=== PATIENT | male | born 1955 | race Caucasian/White ===

== ENCOUNTER 2023-07-13 13:55 | Outpatient (AMB) | payer MEDICARE, MEDICAID, SELFPAY ==
[2023-07-13 13:57] VITALS: BP 118/40; PULSE 74; O2SAT 93; BMI 34.0
--- NOTE | 2023-07-13 13:57 | HO.NEPHOV_ITS ---
HPI HPI Comments History of Present Illness Details I had the privilege of seeing Mr. Maldonado in follow-up of his hypertension. He has been abstaining from using any drugs. His blood sugar control is better. His blood pressure has been at goal. He denies chest pain, shortness of breath, paroxysmal nocturnal dyspnea, orthopnea, pedal edema, urinary symptoms or orthostasis. He is compliant with his medications. There were no new active complaints at the time of this office visit. [facility] Medical History (Updated 07/13/23 @ 14:22 by Freeman Gillespie MD) Hypertension Family History Mother Glaucoma Father Heart disease Heart attack Social History (Updated 07/13/23 @ 13:59 by Natasha Leal) Alcohol intake: former Patient Tobacco Use Status: Former Tobacco user Vital Signs 07/13/23 13:57 Height 5 ft 9 in Weight 230 lb 6 oz BMI 34.0 BP 118/40 L Blood Pressure Location Lt brachial Position Sitting Pulse 74 Pulse Source Pulse Oximeter Pulse Oximetry (%) 93 Oxygen Delivery Method Room Air Physical Exam Vital Signs: Last Vital Signs Pulse 74 07/13/23 13:57 BP 118/40 L 07/13/23 13:57 Pulse Ox 93 07/13/23 13:57 Oxygen Delivery Method Room Air 07/13/23 13:57 BMI result Body Mass Index 34.0 Const General: comfortable and no acute distress Orientation/consciousness: patient oriented x3 HEENT Head: Yes normocephalic Mouth: Normal oral and palatal mucosa present Eyes EOM: EOMs intact bilaterally Neck Neck: Yes supple Resp Auscultation: clear to auscultation bilaterally Cardio Jugular venous distension: no JVD Rate: regular rate GI Palpation (GI): Soft to palpation Auscultation: normal bowel sounds General: Yes no CVA tenderness Back/Spine/Pelvis Back: no CVA tenderness Skin General skin exam: no rashes or lesions noted Neuro General: patient oriented x3 and moves all extremities Extrem General: Yes no pedal edema Assessment & Plan Assessment & Plan (1) Hypertension: Code(s): I10 - Essential (primary) hypertension Qualifiers: Hypertension type: primary hypertension Qualified Code(s): I10 - Essential (primary) hypertension Plan Mr Maldonado has longstanding hypertension. He has not currently using any drugs. He has not been taking any nonsteroidal anti-inflammatory meds. He tries to maintain a low-sodium diet. He is on MARIO inhibitor. His blood pressure is at goal. He is tolerating all his current medications without any side effects. He does not have any significant proteinuria. His diabetes is fairly controlled. I did not make any medication changes today. Follow-up blood work ordered. Answered all questions. Follow-up appointment given. Orders: Orders Creatinine 07/13/23 I10 - Essential (primary) hypertension Electrolytes 07/13/23 I10 - Essential (primary) hypertension Blood Urea Nitrogen 07/13/23 I10 - Essential (primary) hypertension Protein Creatinine Ratio, Ur 07/13/23 I10 - Essential (primary) hypertension Coding Level of Care Code Est Pt Level 3 (16308) Diagnoses Primary hypertension I10 Hypertension type: primary hypertension Results Reviewed Nephrology Results: No Data to Display
== END 2023-07-13 14:29 | disposition home or self-care (01) ==
PROVIDERS: PCP Hospitalist; Visit Provider Internal Medicine Nephrology
DX: I10 Essential (primary) hypertension (principal)
CPT/HCPCS: 99213

== ENCOUNTER → 2023-07-13 13:55 | Outpatient (BNVA) | payer MEDICARE, MEDICAID, SELFPAY | PROVIDERS: PCP Hospitalist; Visit Provider Internal Medicine Nephrology | DX: I10 Essential (primary) hypertension (principal) | CPT/HCPCS: 99212 ==

== ENCOUNTER 2023-10-11 15:55 | Outpatient (REF) | payer MEDICARE, MEDICAID, SELFPAY ==
[2023-10-11 18:28] LABS: Creatinine Urine 58.44 mg/dL; Total Protein Urine Random < 7 mg/dL (<12)
[2023-10-11 18:29] LABS: Anion Gap 10 (12-20); Blood Urea Nitrogen 33 mg/dL (9-16); Carbon Dioxide 31 mmol/L (22-29); Chloride 102 mmol/L (96-108); Estimated Glomerular Filt Rate > 60; Potassium 4.4 mmol/L (3.3-5.1); Sodium 139 mmol/L (135-145)
== END 2023-10-11 15:56 | disposition home or self-care (01) ==
LOC: HO.HKASLDS 15:55
PROVIDERS: Visit Provider Internal Medicine Nephrology
DX: I10 Essential (primary) hypertension (principal)
CPT/HCPCS: 36415; 80051; 82565; 82570; 84156; 84520

== ENCOUNTER 2023-10-12 13:48 | Outpatient (AMB) | payer MEDICARE, MEDICAID, SELFPAY ==
[2023-10-12 13:56] VITALS: BP 124/60; PULSE 70; O2SAT 95; BMI 34.5
--- NOTE | 2023-10-12 13:56 | HO.NEPHOV ---
Vital Signs 10/12/23 13:56 Height 5 ft 9 in Weight 233 lb 8 oz BMI 34.5 BP 124/60 Blood Pressure Location Lt brachial Position Sitting Pulse 70 Pulse Source Pulse Oximeter Pulse Oximetry (%) 95 Oxygen Delivery Method Room Air Intake Visit Reasons: 3M follow up/ Confirmed Telecommunications Network Engineer Required: No Accompanied by: Self / Same As Patient Allergies No Known Allergies Allergy (Verified 10/12/23 13:59) HPI Comments Details: I had the privilege of seeing Mr. Maldonado in follow-up of his hypertension. He has been abstaining from using any drugs. His blood sugar control is better. His blood pressure has been at goal. He denies chest pain, shortness of breath, paroxysmal nocturnal dyspnea, orthopnea, pedal edema, urinary symptoms or orthostasis. He is compliant with his medications. There were no new active complaints at the time of this office visit. [facility] Medical History (Updated 07/13/23 @ 14:22 by Freeman Gillespie MD) Hypertension Family History Mother Glaucoma Father Heart disease Heart attack Social History Alcohol intake: former Patient Tobacco Use Status: Former Tobacco user Physical Exam Vital Signs: Last Vital Signs Pulse 70 10/12/23 13:56 BP 124/60 10/12/23 13:56 Pulse Ox 95 10/12/23 13:56 Oxygen Delivery Method Room Air 10/12/23 13:56 BMI result Body Mass Index 34.5 Const General: comfortable and no acute distress Orientation/consciousness: patient oriented x3 HEENT Head: Yes normocephalic Mouth: Normal oral and palatal mucosa present Eyes EOM: EOMs intact bilaterally Neck Neck: Yes supple Resp Auscultation: clear to auscultation bilaterally Cardio Jugular venous distension: no JVD Rate: regular rate GI Palpation (GI): Soft to palpation Auscultation: normal bowel sounds General: Yes no CVA tenderness Back/Spine/Pelvis Back: no CVA tenderness Skin General skin exam: no rashes or lesions noted Neuro General: patient oriented x3 and moves all extremities Extrem General: Yes no pedal edema Results Reviewed Nephrology Results: Sodium 139 mmol/L (135-145) 04/17/24 Potassium 4.4 mmol/L (3.3-5.1) 10/11/23 Chloride 102 mmol/L (96-108) 10/11/23 Carbon Dioxide 31 mmol/L (22-29) H 10/11/23 BUN 33 mg/dL (9-16) H 10/11/23 Creatinine 0.92 mg/dL (0.5-1.4) 10/11/23 Urine Creatinine 58.44 mg/dL 10/11/23 Protein/Creatinin Ratio TNP 10/11/23 Assessment & Plan Assessment & Plan (1) Hypertension: Code(s): I10 - Essential (primary) hypertension Category: Medical Qualifiers: Hypertension type: primary hypertension Qualified Code(s): I10 - Essential (primary) hypertension Plan Mr Maldonado has longstanding hypertension. He has not currently using any drugs. He has not been taking any nonsteroidal anti-inflammatory meds. He tries to maintain a low-sodium diet. He is on MARIO inhibitor. His blood pressure is at goal. He is tolerating all his current medications without any side effects. He does not have any significant proteinuria. His diabetes is fairly controlled. I did not make any medication changes today. Follow-up blood work ordered. Answered all questions. Follow-up appointment given
== END 2023-10-12 14:19 | disposition home or self-care (01) ==
PROVIDERS: PCP Hospitalist; Visit Provider Internal Medicine Nephrology
DX: I10 Essential (primary) hypertension (principal)
CPT/HCPCS: 99214

== ENCOUNTER → 2023-10-12 13:48 | Outpatient (BNVA) | payer MEDICARE, MEDICAID, SELFPAY | PROVIDERS: PCP Hospitalist; Visit Provider Internal Medicine Nephrology | DX: I10 Essential (primary) hypertension (principal); Z79.811 Long term (current) use of aromatase inhibitors | CPT/HCPCS: 99212 ==

== ENCOUNTER 2024-01-11 12:10 | Outpatient (AMB) | payer MEDICARE, MEDICAID, SELFPAY ==
[2024-01-11 12:31] VITALS: BP 96/50; PULSE 55; O2SAT 95; BMI 32.8
--- NOTE | 2024-01-11 12:31 | HO.NEPHOV ---
Vital Signs 01/11/24 12:31 Height 5 ft 9 in Weight 222 lb BMI 32.8 BP 96/50 L Blood Pressure Location Lt brachial Position Sitting Pulse 55 Pulse Source Pulse Oximeter Pulse Oximetry (%) 95 Oxygen Delivery Method Room Air Intake Visit Reasons: 3 mon follow up Particle Board Supervisor Required: No Accompanied by: Self / Same As Patient Allergies No Known Allergies Allergy (Verified 01/11/24 12:33) HPI Comments Details: I had the privilege of seeing Mr. Maldonado in follow-up of his hypertension. He has been abstaining from using any drugs. His blood sugar control is better. His blood pressure has been at goal. He denies chest pain, shortness of breath, paroxysmal nocturnal dyspnea, orthopnea, pedal edema, urinary symptoms or orthostasis. He is compliant with his medications. There were no new active complaints at the time of this office visit. [facility] Medical History (Updated 07/13/23 @ 14:22 by Freeman Gillespie MD) Hypertension Family History Mother Glaucoma Father Heart disease Heart attack Social History Alcohol intake: former Patient Tobacco Use Status: Former Tobacco user Physical Exam Vital Signs: Last Vital Signs Pulse 55 01/11/24 12:31 BP 96/50 L 01/11/24 12:31 Pulse Ox 95 01/11/24 12:31 Oxygen Delivery Method Room Air 01/11/24 12:31 BMI result Body Mass Index 32.8 Const General: comfortable and no acute distress Orientation/consciousness: patient oriented x3 HEENT Head: Yes normocephalic Mouth: Normal oral and palatal mucosa present Eyes EOM: EOMs intact bilaterally Neck Neck: Yes supple Resp Auscultation: clear to auscultation bilaterally Cardio Jugular venous distension: no JVD Rate: regular rate GI Palpation (GI): Soft to palpation Auscultation: normal bowel sounds General: Yes no CVA tenderness Back/Spine/Pelvis Back: no CVA tenderness Skin General skin exam: no rashes or lesions noted Neuro General: patient oriented x3 and moves all extremities Extrem General: Yes no pedal edema Results Reviewed Nephrology Results: Sodium 139 mmol/L (135-145) 10/11/23 Potassium 4.4 mmol/L (3.3-5.1) 10/11/23 Chloride 102 mmol/L (96-108) 10/11/23 Carbon Dioxide 31 mmol/L (22-29) H 10/11/23 BUN 33 mg/dL (9-16) H 10/11/23 Creatinine 0.92 mg/dL (0.5-1.4) 10/11/23 Urine Creatinine 58.44 mg/dL 10/11/23 Protein/Creatinin Ratio TNP 10/11/23 Assessment & Plan Assessment & Plan (1) Hypertension: Code(s): I10 - Essential (primary) hypertension Category: Medical Qualifiers: Hypertension type: primary hypertension Qualified Code(s): I10 - Essential (primary) hypertension Plan Mr Maldonado has longstanding hypertension. He has not currently using any drugs. He has not been taking any nonsteroidal anti-inflammatory meds. He tries to maintain a low-sodium diet. He is on MARIO inhibitor. His blood pressure is at goal. He is tolerating all his current medications without any side effects. He does not have any significant proteinuria. His diabetes is fairly controlled. I did not make any medication changes today. Follow-up blood work ordered. Answered all questions. Follow-up appointment given Orders: Orders Creatinine Today I10 - Essential (primary) hypertension Blood Urea Nitrogen Today I10 - Essential (primary) hypertension Electrolytes Today I10 - Essential (primary) hypertension Coding Level of Care Code Est Pt Level 4 (53044) Diagnoses Primary hypertension I10 Hypertension type: primary hypertension
== END 2024-01-11 12:52 | disposition home or self-care (01) ==
PROVIDERS: PCP Hospitalist; Visit Provider Internal Medicine Nephrology
DX: I10 Essential (primary) hypertension (principal)
CPT/HCPCS: 99214

== ENCOUNTER → 2024-01-11 12:10 | Outpatient (BNVA) | payer MEDICARE, MEDICAID, SELFPAY | PROVIDERS: PCP Hospitalist; Visit Provider Internal Medicine Nephrology | DX: I10 Essential (primary) hypertension (principal) | CPT/HCPCS: 99212 ==

== ENCOUNTER 2024-08-08 14:19 | Outpatient (AMB) | payer MEDICARE, MEDICAID, SELFPAY ==
--- OUTSIDE RECORDS SUMMARY | 2024-08-08 14:21 | XMS_ITS | Clinical Summary ---
Author Organization [facility] it Address [address] [place] [address] Care Team Providers Care Crtt Name Role Phone Karyn Rae MD Primary Care Provider [phone] Social History Tobacco Use Types Packs/Day Years Used Date Smoking Tobacco: Never Assessed Sex and Gender Information Value Date Recorded Sex Assigned at Not on file Legal Sex Male 5:02 PM EST Gender Identity Not on file Sexual Orientation Not on file Plan of Treatment Health Maintenance Due Date Last Done Comments DTaP,Tdap,and Td Vaccines (1 - Tdap) 1976 Zoster Vaccines (1 of 2) 2007 Pneumococcal Vaccine: 50+ Years (1 of 1 - PCV) 2022 Abdominal Aortic Aneurysm (AAA) Screen 07/25/2023 Cholesterol Screening (Lipid Panel) 07/25/2023 Colorectal Cancer Screening: Colonoscopy 07/25/2023 Depression Screening 07/25/2023 Falls Risk Assessment 07/25/2023 Hepatitis C Screening 07/25/2023 Social Influencers of Health Screening 07/25/2023 COVID-19 Vaccine ( season) 2024 Influenza Vaccine (#1) 2024 3, 03/02/2022, 03/28/2021, Additional history exists RSV Immunization Patients 60+ Years Old (1 - 1-dose 75+ series) 2032 HIB Vaccines Aged Out No longer eligi ble based on patient's age to complete this topic HPV Vaccines Aged Out No longer eligi ble based on patient's age to complete this topic Hepatitis A Vaccines Aged Out No long er eligible based on patient's age to complete this topic Hepatitis B Vaccines Aged Out No long er eligible based on patient's age to complete this topic IPV Vaccines Aged Out No longer eligi ble based on patient's age to complete this topic MMR Vaccines Aged Out No longer eligi ble based on patient's age to complete this topic Meningococcal ACWY Vaccine Aged Out N o longer eligible based on patient's age to complete this topic RSV Immunization Patients Under 20 months Aged Out No longer eligible based on patient's age to complete this topic Varicella Vaccines Aged Out No longer eligible based on patient's age to complete this topic Care Teams Crtt Relationship Specialty Start Date End Date Karyn Rae MD [address] [place] [address] PCP - General Internal Medicine 01/11/19
--- OUTSIDE RECORDS SUMMARY | 2024-08-08 14:21 | XMS_ITS | Encounter Summary ---
Author Organization [facility] Address [address] [place] [address] Phone Care Team Providers Care Flavorings Compounder Name Role Phone Karyn Rae MD Primary Care Provider [phone] Reason for Visit * Reason Comments Med Refill Encounter Details Date Type Department Care Team (Late st Contact Info) Description 08/05/2020 Refill [facility] [address] [place] [address] Freeman Gillespie MD Social History Tobacco Use Types Packs/Day Years Used Date Smoking Tobacco: Never Alcohol Use Standard Drinks/Week Comments No 0 (1 standard drink = 0.6 oz pur e alcohol) Sex and Gender Information Value Date Recorded Sex Assigned at Not on file Legal Sex Male 5:04 PM EST Gender Identity Not on file Sexual Orientation Not on file documented as of this encounter Plan of Treatment Not on file documented as of this encounter Visit Diagnoses Not on filedocumented in this encounter Care Teams Flavorings Compounder Relationship Specialty Start Date End Date Karyn Rae MD [address] [place] [address] PCP - General 07/06/20 documented as of this encounter
--- OUTSIDE RECORDS SUMMARY | 2024-08-08 14:21 | XMS_ITS ---
Author Organization [facility] Address [address] [place] [address] Care Team Providers Care Horticultural Technical Officer Name Role Phone JAMES JHONNY Primary Care Provider [phone] REASON FOR VISIT Hydralazine refill Medications Medication SIG (Take, Route, Fr equency, Duration) Notes Start Date End Date Status hydrALAZINE HCl 100 MG 1 tablet with apurva d Orally Three times a day for 30 days Ac tive Encounters Encounter Location Date Provider Diagnosis [address] [address] 07/23/2024 JHONNY RAMIREZ Plan Of Treatment Medication Medication Name Sig Start Date Stop Date Notes hydrALAZINE HCl 100 MG 1 tablet with apurva d Orally Three times a day for 30 days Next Appt Details Provider Name:JHONNY RAMIREZ , 12/31/2024 03:00:00 PM, [address] [place] [address], [place], [address], Progress Notes * Javier ADENOB:1955 (69 yo M)Acc No.[id number]:07/23/2024 Patient:?MARKIETristianel :1955???Age:69 Y???Sex:Male Address:[address] [place] [id number] * Refills? Refill hydrALAZINE HCl Tablet, 100 MG, Orally, 90 Tablet, 1 tablet with food, Three times a day, 30 days, Refills=5 * true * Date:? Generated for Trenton meehan/Josey/Bhavesh on:?08/08/2024 02:21 PM EST
--- OUTSIDE RECORDS SUMMARY | 2024-08-08 14:21 | XMS_ITS ---
Author Organization [facility] Address [address] [place] [address] Care Team Providers Care Circular Knife Machine Cutter Name Role Phone JAMES JHONNY Primary Care Provider [phone] REASON FOR VISIT Trazodone refill Medications Medication SIG (Take, Route, Fr equency, Duration) Notes Start Date End Date Status traZODone HCl 100 MG 1 tablet at bedtime Orally Once a day for 90 days Active Encounters Encounter Location Date Provider Diagnosis [address] [address] 07/31/2024 JHONNY RAMIREZ Plan Of Treatment Medication Medication Name Sig Start Date Stop Date Notes traZODone HCl 100 MG 1 tablet at bedtime Orally Once a day for 90 days Next Appt Details Provider Name:JHONNY RAMIREZ , 12/31/2024 03:00:00 PM, [address] [place] [address], [phone], Progress Notes * Javier ADENOB:1955 (69 yo M)Acc No.[id number]:07/31/2024 Patient:?ADENTristianel :1955???Age:69 Y???Sex:Male Address:[address] [place] [phone] * Refills? Refill traZODone HCl Tablet, 100 MG, Orally, 90, 1 tablet at bedtime, Once a day, 90 days, Refills=3 * true * Date:? Generated for Trenton meehan/Josey/Bhavesh on:?08/08/2024 02:21 PM EST
--- OUTSIDE RECORDS SUMMARY | 2024-08-08 14:21 | XMS_ITS | Clinical Summary ---
Author Organization [facility] Address [address] [facility] [address] [place] [address] Phone Care Team Providers Care Dock Guard Name Role Phone Karyn Rae MD Primary Care Provider [phone] Allergies No known active allergies Medications atorvastatin (LIPITOR) 40 MG tablet Take 1 tablet by mouth 1 (one) time each day Active gabapentin (NEURONTIN) 300 MG capsule Take 2 capsules by mouth 3 (three) times a day 01/11/2011 Active insulin aspart (NovoLOG) 100 UNIT/ML injection Active insulin glargine (Basaglar KwikPen) 100 UNIT/ML injection Active loratadine (CLARITIN) 10 MG tablet Take 1 tablet by mouth 1 (one) time each day Active metFORMIN (GLUCOPHAGE) 500 MG tablet Take 1 tablet by mouth in the morning and 1 tablet in the evening. Take with meals. Active traZODone (DESYREL) 100 MG tablet Take 1 tablet by mouth 1 (one) time each day 05/03/2011 Active buprenorphine-n aloxone (SUBOXONE) 8-2 MG per SL tablet Place 1 tablet under the tongue 1 (one) time each day Active Cholecalciferol (Vitamin D3) 25 MCG (1000 UT) capsule Take 1 capsule by mouth 1 (one) time each day 03/13/2021 Active Multiple Vitamin (multivitamin) tablet Take 1 tablet by mouth 1 (one) time each day Active Cyanocobalamin (VITAMIN B-12 CR PO) Take by mouth Active chlorthalidone 25 MG tablet TAKE ONE TABLET BY MOUTH EVERY DAY 30 tablet 11 06/16/2022 Active furosemide (LASIX) 20 MG tablet Take 40 mg by mouth in the morning and 40 mg in the evening. 06/14/2022 Active docusate sodium (COLACE) 100 MG capsule if needed 07/02/2022 Active NIFEdipine CC (ADALAT CC) 30 MG 24 hr tablet Take 1 tablet by mouth 1 (one) time each day 05/27/2022 Active enalapril (VASOTEC) 20 MG tablet TAKE TWO TABLETS BY MOUTH EVERY DAY 180 tablet 3 09/12/2022 Active hydrALAZINE 100 MG tablet Take 1 tablet (100 mg total) by mouth in the morning and 1 tablet (100 mg total) at noon and 1 tablet (100 mg total) in the evening. 90 tablet 3 01/19/2023 Active Aspirin Low Dose 81 MG EC tablet Take 81 mg by mouth 1 (one) time each day 12/23/2022 Active Farxiga 5 MG tablet Take 5 mg by mouth 1 (one) time each day 11/30/2022 Active diclofenac (VOLTAREN) 75 MG EC tablet 01/19/2023 Active carvedilol (COREG) 25 MG tablet TAKE 2 TABLETS BY MOUTH DAILY IN THE MORNING THEN TAKE 2 TABLETS BY MOUTH DAILY IN THE EVENING 120 tablet 3 03/13/2023 Active Active Problems Problem Noted Date Diagnosed Date Hypertension 06/21/2021 Acute nontraumatic kidney injury 11/19/2020 Renal disorder due to type 2 diabetes mellitus 0 11/19/2020 Disorder of kidney due to diabetes mellitus 10/25 Essential hypertension 11/19/2020 Hyperkalemia 11/19/2020 Resolved Problems Problem Noted Date Diagnosed Date Resolved Date Abscess 06/21/2021 07/28/2021 Tubular adenoma of colon 06/21/202107/2021 Arthralgia of the upper arm 11/19/2020 11/19/2020 Bipolar disorder 11/19/2020 11/19/2020 Cerebral infarction 11/19/2020 11/20/19 21 Edema 11/19/2020 11/19/2020 Encounter for follow-up exam ination after completed treatment for condition other than malignant neoplasm 11/19/2020 11/19/2020 Insomnia 11/19/2020 11/19/2020 Long-term current use of insulin 11/19/2020 11/19/2020 Mixed hyperlipidemia 11/19/2020 021 Nausea and vomiting 11/19/2020 11/20/19 21 Obese class II 11/19/2020 11/19/2020 Opioid dependence, in remission 11/19/2020 11/19/2020 Otalgia, unspecified 11/19/2020 021 Polyp of colon 11/19/2020 11/19/2020 Tobacco user 11/19/2020 11/19/2020 Immunizations Name Administration Dates Next Due Influenza, MDCK, PF, Quadrivalent 03/15/2020 Pneumococcal Polysaccharide 05/25/2016 Family History Medical History Relation Comments Stroke Father Hypertension Sibling Relation Status Comments Father Mother Alive Sibling Social History Tobacco Use Types Packs/Day Years Used Date Smoking Tobacco: Never Smokeless Tobacco: Never Tobacco Cessation:Counseling Given: Not Answered Alcohol Use Standard Drinks/Week Comments No 0 (1 standard drink = 0.6 oz pur e alcohol) Sex and Gender Information Value Date Recorded Sex Assigned at Not on file Legal Sex Male 5:04 PM EST Gender Identity Not on file Sexual Orientation Not on file Last Filed Vital Signs Vital Sign Reading Time Taken Comments Blood Pressure 102/50 01/19/2023 3:16 PM EDT Pulse 64 01/19/2023 3:16 PM EDT Temperature - - Respiratory Rate - - Oxygen Saturation 97% 06/21/2021 1:36 PM EST Inhaled Oxygen Concentration - - Weight 104 kg (229 lb 9.6 oz) 01/19/2023 3:16 PM EDT Height 175.3 cm (5' 9 ) 09/24/2019 12:00 PM EDT Body Mass Index 33.91 09/24/2019 12:00 PM EDT Plan of Treatment Health Maintenance Due Date Last Done Comments Colorectal Cancer Screening: Annual FOBT 2006 Colorectal Cancer Screening: Colonoscopy 2006 Colorectal Cancer Screening: Sigmoidoscopy 2006 Pneumococcal Vaccine: 65+ Ye ars (2 of 2 - PCV) 05/25/2017 05/25/2016 Diabetes: Ophthalmology Exam 07/24/2020 Diabetes: Pedal Pulse Checked 07/24/2020 Diabetes: Sensory Foot Exam 07/24/2020 Diabetes: Visual Foot Exam 07/24/2020 Diabetes: Hemoglobin A1C 11/27/2020 08/27/2020 Influenza Vaccine (#1) 2024 03/15/2020 Hepatitis B Vaccine Aged Out No longe r eligible based on patient's age to complete this topic Procedures Procedure Name Priority Date/Time Associated Diagnosis Comments EXT RESULT ENTRY Routine 08/27/2020 from Last 3 Months or Most Recently Relevant to Health Maintenance Results * (ABNORMAL) EXT RESULT ENTRY (08/27/2020) Sodium 142 137 - 147 Potassium 4.6 3.4 - 5.5 Chloride 105 99 - 108 Bicarbonate (CO2) 29 22 - 30 mmol/L Anion Gap 8 <=30 MMOL/L Glucose 115 60 - 200 BUN 17 4 - 21 mg/dL Creatinine 0.70 0.60 - 1.30 mg/dL Calcium 9.6 8.7 - 10.7 mg/dL eGFR Non-Afr [place] Islander 100 eGFR 116 Hemoglobin A1C 8.5(A) 4.0 - 6.0 Triglycerides 115 40 - 160 Cholesterol 103 0 - 200 HDL 37 35 - 70 MG/DL LDL Calculated 43 0 - 160 mg/dL 08/27/2020 [facility] Provider LAB BLOOD ORDERABLES Christina l Result from Last 3 Months or Most Recently Relevant to Health Maintenance Insurance [place] Care Teams Dock Guard Relationship Specialty Start Date End Date Karyn Rae MD [address] [place] [address] PCP - General 07/06/20
--- NOTE | 2024-08-08 14:22 | HO.NEPHOV_ITS ---
Vital Signs 08/08/24 14:25 Height 5 ft 9 in Weight 222 lb 4 oz BMI 32.8 BP 110/60 Blood Pressure Location Lt brachial Position Sitting Pulse 68 Pulse Source Pulse Oximeter Pulse Oximetry (%) 96 Oxygen Delivery Method Room Air Intake Visit Reasons: R/s from 08/01/24/ Papo Detasseler Required: No Accompanied by: Self / Same As Patient Allergies No Known Allergies Allergy (Verified 08/08/24 14:25) HPI Comments Details: I had the privilege of seeing Mr. Maldonado in follow-up of his hypertension. He has been abstaining from using any drugs. His blood sugar control is better. His blood pressure has been at goal. He denies chest pain, shortness of breath, paroxysmal nocturnal dyspnea, orthopnea, pedal edema, urinary symptoms or orthostasis. He is compliant with his medications. There were no new active complaints at the time of this office visit. COUNTS INCLUDE 234 BEDS AT [facility] Medical History (Updated 07/13/23 @ 14:22 by Freeman Gillespie MD) Hypertension Family History Mother Glaucoma Father Heart disease Heart attack Social History Alcohol intake: former Patient Tobacco Use Status: Former Tobacco user Review of Systems Const All systems reviewed & are unremarkable except as noted in HPI and below Physical Exam Const General: comfortable and no acute distress Orientation/consciousness: patient oriented x3 HEENT Head: Yes normocephalic Mouth: Normal oral and palatal mucosa present Eyes EOM: EOMs intact bilaterally Neck Neck: Yes supple Resp Auscultation: clear to auscultation bilaterally Cardio Jugular venous distension: no JVD Rate: regular rate GI Palpation (GI): Soft to palpation Auscultation: normal bowel sounds General: Yes no CVA tenderness Back/Spine/Pelvis Back: no CVA tenderness Skin General skin exam: no rashes or lesions noted Neuro General: patient oriented x3 and moves all extremities Extrem General: Yes no pedal edema Assessment & Plan Assessment & Plan (1) Hypertension: Code(s): I10 - Essential (primary) hypertension Category: Medical Qualifiers: Hypertension type: primary hypertension Qualified Code(s): I10 - Essential (primary) hypertension Plan Mr Maldonado has longstanding hypertension. He has not currently using any drugs. He has not been taking any nonsteroidal anti-inflammatory meds. He tries to maintain a low-sodium diet. He is on MARIO inhibitor. His blood pressure is at goal. He is tolerating all his current medications without any side effects. He does not have any significant proteinuria. His diabetes is fairly controlled. I did not make any medication changes today. Follow-up blood work ordered. Answered all questions. Follow-up appointment given Orders: Orders Electrolytes 6 Months I10 - Essential (primary) hypertension Creatinine 6 Months I10 - Essential (primary) hypertension Blood Urea Nitrogen 6 Months I10 - Essential (primary) hypertension Protein Creatinine Ratio, Ur 6 Months I10 - Essential (primary) hypertension Coding Level of Care Code Est Pt Level 4 (19292) Diagnoses Primary hypertension I10 Hypertension type: primary hypertension
--- OUTSIDE RECORDS SUMMARY | 2024-08-08 14:22 | XMS_ITS | Encounter Summary ---
Author Organization [facility] Address [address] [facility] [address] [place] [address] Phone Care Team Providers Care Lockstitcher Name Role Phone Karyn Rae MD Primary Care Provider [phone] Encounter Details Date Type Department Care Team (Late st Contact Info) Description 09/22/2021 Telephone [facility] [address] [facility] [address] [place] [address] Freeman Gillespie MD Social History Tobacco Use Types Packs/Day Years Used Date Smoking Tobacco: Never Smokeless Tobacco: Never Alcohol Use Standard Drinks/Week Comments No 0 (1 standard drink = 0.6 oz pur e alcohol) Sex and Gender Information Value Date Recorded Sex Assigned at Not on file Legal Sex Male 5:04 PM EST Gender Identity Not on file Sexual Orientation Not on file documented as of this encounter Miscellaneous Notes * Telephone Encounter - Shelly Serrano - 09/22/2021 11:08 AM EDT Pt called he sa Dr. Caputo the other day and he was concerned about his bp being to high. Currently the pts bp is at 150/60 on average. He would like to speak with you to know if it is something he should be concerned about. Please advise Thank you CB# [phone] documented in this encounter Plan of Treatment Not on file documented as of this encounter Visit Diagnoses Not on filedocumented in this encounter Care Teams Lockstitcher Relationship Specialty Start Date End Date Karyn Rae MD [address] [place] [id number] PCP - General 07/06/20 documented as of this encounter
--- OUTSIDE RECORDS SUMMARY | 2024-08-08 14:22 | XMS_ITS ---
Author Organization [facility] Address [address] [address] Care Team Providers Care Business Services Manager Name Role Phone WILIAN RAMIREZBARRY Primary Care Provider [phone] REASON FOR VISIT Refills Medications Medication SIG (Take, Route, Frequency, Duration) Notes Start Date End Date Status Coreg 25 MG 2 tablet Orally Twice a day for 90 days 07/23/2019 Active Encounters Encounter Location Date Provider Diagnosis [facility] [address] [facility] [address] [place] [address] 07/31/2024 JHONNY RAMIREZ Essential (primary) hypertension I10 Assessments Encounter Date Diagnosis (ICD Code) Assessment Notes Treatment Notes Treatment Clinical Notes Section Notes 07/31/2024 Essential (primary) hypertension (ICD-10 - I10) Plan Of Treatment Medication Medication Name Sig Start Date Stop Date Notes Coreg 25 MG 2 tablet Orally Twice a day for 90 days 2019 Next Appt Details Provider Name:JHONNY RAMIREZ , 12/31/2024 03:00:00 PM, [address] [place] [address], [place], [address], Progress Notes * Javier ADENOB:1955 (69 yo M)Acc No.[id number]:07/31/2024 Patient:?Jose Miguel ADEN :1955???Age:69 Y???Sex:Male Address:[address] [place] [place] [id number] * Refills? Refill Coreg Tablet, 25 MG, Orally, 360, 2 tablet, Twice a day, 90 days, Refills=3 * true * Date:? Generated for Trenton meehan/Josey/Bhavesh on:?08/08/2024 02:21 PM EST
[2024-08-08 14:25] VITALS: BP 110/60; PULSE 68; O2SAT 96; BMI 32.8
== END 2024-08-08 14:49 | disposition home or self-care (01) ==
PROVIDERS: PCP Hospitalist; Visit Provider Internal Medicine Nephrology
DX: I10 Essential (primary) hypertension (principal)
CPT/HCPCS: 99214

== ENCOUNTER → 2024-08-08 14:19 | Outpatient (BNVA) | payer MEDICARE, MEDICAID, SELFPAY | PROVIDERS: PCP Hospitalist; Visit Provider Internal Medicine Nephrology | DX: I10 Essential (primary) hypertension (principal) | CPT/HCPCS: 99212 ==

== ENCOUNTER 2025-01-30 13:25 | Outpatient (REF) | payer MEDICARE, MEDICAID, SELFPAY ==
--- OUTSIDE RECORDS SUMMARY | 2025-01-30 13:29 | XMS_ITS | Clinical Summary ---
Author Organization [facility] Address [address] [facility] [facility] [address] [place] [address] Phone Care Team Providers Care Dedicated Truck Driver Name Role Phone Karyn Rae MD Primary Care Provider [phone] Allergies No known active allergies Medications atorvastatin [...] 11/19/2020 11/19/2020 Tobacco user 11/19/2020 11/19/2020 Immunizations Immunization Administration Dates Next Due Influenza, MDCK, PF, [...] Colorectal Cancer Screening: Sigmoidoscopy 2006 Pneumococcal Vaccine: 50+ Ye ars (2 of 2 - PCV) 05/25/2017 05/25/2016 Diabetes: Ophthalmology Exam 07/24/2020 Diabetes: Pedal Pulse Checked 07/24/2020 Diabetes: Sensory Foot Exam 07/24/2020 Diabetes: Visual Foot Exam 07/24/2020 Diabetes: Hemoglobin A1C 11/27/2020 08/27/2020 Influenza Vaccine (#1) 2025 03/15/2020 Pneumococcal Vaccine: Peds ( 0 to 5 Years) and At-Risk Patients (6 to 49 Years) Discontinued 05/25/2016 Hepatitis B Vaccine Aged Out No longe [...] 9.6 8.7 - 10.7 mg/dL eGFR Non-Afr Bulgarian 100 eGFR 116 Hemoglobin A1C 8.5(A) 4.0 - 6.0 Triglycerides 115 40 - 160 Cholesterol 103 0 - 200 HDL 37 35 - 70 MG/DL LDL Calculated 43 0 - 160 mg/dL 08/27/2020 us Historical Provider LAB BLOOD ORDERABLES Christina l Result from Last 3 Months or Most Recently Relevant to Health Maintenance Insurance Medicare Medicaid [place] Medicare Medicaid [place] Care Teams Dedicated Truck Driver Relationship Specialty Start Date End Date Karyn Rae MD [address] [place] [id number] PCP - General 07/06/20
--- OUTSIDE RECORDS SUMMARY | 2025-01-30 13:30 | XMS_ITS | Clinical Summary ---
Author Organization [facility] Address [address] [place] [address] Care Team Providers Care Tactical Debriefer Officer Name Role Phone Karyn Rae MD Primary Care Provider [phone] Social History Tobacco Use Types Packs/Day Years Used Date Smoking Tobacco: Never Assessed Sex and Gender Information Value Date Recorded Sex Assigned at Not on file Legal Sex Male 5:02 PM EST Gender Identity Not on file Sexual Orientation Not on file Plan of Treatment Health Maintenance Due Date Last Done Comments DTaP,Tdap,and Td Vaccines (1 - Tdap) 1976 Pneumococcal Vaccine: 50+ Years (1 of 1 - PCV) 2007 Zoster Vaccines (1 of 2) 2007 Abdominal Aortic Aneurysm (AAA) Screen 07/25/2023 Cholesterol Screening (Lipid Panel) 07/25/2023 Colorectal Cancer Screening: Colonoscopy 07/25/2023 Falls Risk Assessment 07/25/2023 Hepatitis C Screening 07/25/2023 Social Influencers of Health Screening 07/25/2023 COVID-19 Vaccine ( season) 2024 Depression Screening 06/26/2024 Influenza Vaccine (#1) 2025 3, 03/02/2022, 03/28/2021, Additional history exists RSV Immunization Adult Patients (1 - 1-dose 75+ series) 2032 HIB [...] patient's age to complete this topic Meningococcal B Vaccine Aged Out No l onger eligible based on patient's age to complete this topic RSV Immunization Patients Under 20 months Aged Out No longer eligible based on patient's age to complete this topic Varicella Vaccines Aged Out No longer eligible based on patient's age to complete this topic Care Teams Tactical Debriefer Officer Relationship Specialty Start Date End Date Karyn Rae MD [address] [place] [phone] PCP - General Internal Medicine 01/11/19
--- OUTSIDE RECORDS SUMMARY | 2025-01-30 13:30 | XMS_ITS | Patient Health Record ---
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 Name Role Phone JHONNY RAMIREZ Primary Care Provider Yumiko Che Unavailable [phone] Allergies No Known Allergies Reason For Referral No Information Medications Medication SIG (Take, Route, Frequency, Duration) Notes Start Date End Date Status traZODone HCl 100 MG 1 tablet at bedtime Orally Once a day; Duration: 90 days Active BD Pen Needle Mini U/F 31G X 5 MM use with Basaglar and Novolog 4 time s a day; Duration: 30 days 09/24/2018 Active Easy Touch Safety Lancets 28G - as directed subq to check blood sugars four times daily; Duration: 90 days 05/30/2022 Active metFORMIN HCl ER 500 MG 2 tablets Orally twice a day; Duration: 90 days Active FreeStyle Lancets - 1 lancet Dx: E11.8 four times a day; Duration: 90 days 01/21/2021 Active Gabapentin 300 MG 2 capsule Orally three times daily; Duration: 90 days Active PreserVision AREDS - as directed Orally 1 capsule twice a day Active Basaglar KwikPen 100 UNIT/ML 80 units Subcutaneous 80 units twice a day; Duration: 30 days Not-Taking Enalapril Maleate 20 MG 1 tablet Orally Twice a day; Duration: 90 days Active tiZANidine HCl 4 MG 1 tablet as needed Orally Three times a day; Duration: 7 days 01/19/2023 Active Vitamin D3 1000 UNIT 1 capsule Orally On ce a day; Duration: 90 days Active Docusate Sodium 100 MG 1 capsule Orally twice a day; Duration: 90 days As needed 01/23/2019 Active Anusol-HC 2.5 % 1 application Externally Twice a day; Duration: 30 day(s) 06/13/2022 Not-Taking Chlorthalidone 25 MG 1 tablet in the morning with food Orally daily; Duration: 90 days 08/08/2023 Active Admelog SoloStar 100 UNIT/ML sliding scale 8-27 units Subcutaneous three times a day; Duration: 90 days 12/13/2023 Active Diclofenac Sodium 75 MG 1 tablet as need ed Orally Twice a day; Duration: 15 days 01/19/2023 Not-Taking FreeStyle Lite Test - 1 strip In Vitro three times a day; Duration: 90 days 05/31/2022 Active NovoLOG FlexPen 100 UNIT/ML sliding scale 8-27 units Subcutaneous three times a day; Duration: 30 days Not-Taking FreeStyle Lancets - use to check blood sugar 3 times a day E08.40; Duration: 90 days 12/26/2023 Active Lasix 20 MG 2 tablet Orally twic e a day; Duration: 90 day(s) 08/12/2020 Not-Taking FreeStyle Lite - use to check blood sugars Dx: E11.8 four times a day; Duration: 30 days 01/21/2021 Active Silvadene 1 % 1 application Externally 2 times a day; Duration: 10 days 08/03/2023 Not-Taking FreeStyle Lite Test - as directed to josh ck blood sugars three times a day Dx: E11.9 In Vitro 3 times a day; Duration: 90 days Active FreeStyle Juanis 2 Sensor Systm - as directed; Duration: 30 days 12/26/2023 Active FreeStyle Juanis 2 [place] - as directed Dx: E08.40; Duration: 90 days 02/01/2024 Active FreeStyle Lancets - Use with lancing device to test blood glucose levels to skin DX: E08.21 four times a day; Duration: 90 days 02/24/2022 Active NIFEdipine ER 30 MG 1 tablet on an empty stomach Orally Once a day; Duration: 90 days 08/05/2020 Active Calcium Magnesium one daily Ac tive Sure Comfort Pen [place] 30G X 8 MM USE WITH INSULIN PEN TO INJECT IF NEEDED; Duration: 90 Active Furosemide 20 MG 1 tablet Orally daily; Duration: 30 days 12/31/2024 Active Probiotic - as directed Orally once a day Active Farxiga 10 MG 1 tablet Orally Once a day; Duration: 90 days 07/22/2022 Active Suboxone 8-2 MG 1 film under the tongue and allow to dissolve Sublingual bid Active Atorvastatin Calcium 40 MG 1 tablet Orally Once a day; Duration: 90 days 04/21/2022 Active Fenofibrate 160 MG 1 tablet with food Orally Once a day Active Tresiba FlexTouch 200 UNIT/ML Inject 35 units Subcutaneous Twice a day; Duration: 30 days 06/13/2024 Active Diclofenac Sodium 75 MG 1 tablet with fo od or milk Orally Twice a day; Duration: 30 day(s) 02/20/2019 Active Aspirin Adult Low Strength 81 MG 1 tablet Orally Once a day; Duration: 90 days Active [place] 3 one daily Active hydrALAZINE HCl 100 MG 1 tablet with apurva d Orally Three times a day; Duration: 30 days Active Sure Comfort Alcohol Prep 70 % USE TO SANITIZE PRIOR TO INJECTING; Duration: 90 Active Coreg 25 MG 2 tablet Orally Twic e a day; Duration: 90 days 07/23/2019 Active Immunizations Vaccine Route Administration Date Status Comme nts COVID 19 Pfizer Unknown 12/28/2020 Administered COVID 19 Pfizer Unknown 01/18/2021 Administered COVID Moderna Unknown 07/23/2021 Administered COVID-19 Pfizer Unknown 04/05/2022 Administered Flu Shot Unknown 03/15/2020 Administered Flu Shot Unknown 03/02/2022 Administered Fluzone QD Unknown 04/28/2016 Administered Hep B, adult dosage, for intramuscular use Unknown 05/03/2017 Administered Hep B, adult dosage, for intramuscular use Unknown 04/03/2018 Administered Prevnar 20 Unknown 08/25/2022 Administered Shingrix Unknown 09/03/2020 Administered Shingrix Unknown 03/16/2022 Administered Tdap Unknown 05/03/2017 Administered Social History Tobacco Use: Social History Observation Description Date Details (start date - stop date) Never Smoker NA - NA Tobacco Use/Smoking Question Answer Notes Are you a nonsmoker Alcohol Screen (Audit-C) Question Answer Notes Did you have a drink containing alcohol in the p ast year? No Points 0 Interpretation Negative Section Notes: polysubstance use in the pas t polysubstance use in the pas t polysubstance use in the pas t polysubstance use in the pas t polysubstance use in the pas t polysubstance use in the pas t polysubstance use in the pas t polysubstance use in the pas t polysubstance use in the pas t polysubstance use in the pas t polysubstance use in the pas t polysubstance use in the pas t polysubstance use in the pas t polysubstance use in the pas t polysubstance use in the pas t polysubstance use in the pas t polysubstance use in the pas t polysubstance use in the pas t polysubstance use in the pas t polysubstance use in the pas t polysubstance use in the pas t polysubstance use in the pas t polysubstance use in the pas t Problems Problem Type SNOMED Code ICD Code Onset Dates Problem Status W/U Status Risk Notes Problem Diabetic nephropathy (904898840) Diabetes mellitus due to underlying condition with diabetic nephropathy (E08.21) Active confirmed Problem Diabetic neuropathy (705995965) Diabetes mellitus due to underlying condition with diabetic neuropathy, unspecified (E08.40) Active confirmed Problem Mixed hyperlipidemia (916410546) Mixed hyperlipidemia (E78.2) Active confirmed Problem Opioid dependence in remission (399330828) Opioid dependence, in remission (F11.21) Active confirmed Problem Bipolar disorder (86257556) Bipolar disorder, unspecified (F31.9) Active confirmed Problem Insomnia (284879852) Insomnia, unspecified (G47.00) Active confirmed Problem Essential hypertension (96904992) Essential (primary) hypertension (I10) Active confirmed Problem Cerebral infarction (770975998) Cerebral infarction, unspecified (I63.9) Active confirmed Problem Carotid artery occlusion (414400163) Occlusion and stenosis of unspecified carotid artery (I65.29) Active confirmed Problem Peripheral venous insufficiency (84853031) Venous insufficiency (chronic) (peripheral) (I87.2) Active confirmed Problem Constipation (79020240) Constipation, unspecified (K59.00) Active confirmed Problem Polyp of colon (26634849) Polyp of colon (K63.5) Active confirmed Problem Adult health examination (616117436) Encounter for general adult medical examination without abnormal findings (Z00.00) Active confirmed Problem History and physical examination, follow-up (350783291) Encounter for follow-up examination after completed treatment for conditions other than malignant neoplasm (Z09) Active confirmed Problem Long-term current use of insulin (672336529) USP (current) use of insulin (Z79.4) Active confirmed Vital Signs Heart Rate 70 /min 12/31/2024 Temperature 97.6 degrees Fahrenheit 12/31/2024 Blood pressure diastolic 70 mm Hg 12/31/2024 Oximetry 94 % 12/31/2024 Height 69.02 in 12/31/2024 Blood pressure systolic 130 mm Hg 12/31/2024 Weight 223.4 lbs 12/31/2024 BMI 32.97 kg/m2 12/31/2024 Encounters Encounter Location Date Provider Diagnosis [address] [place] [address] 07/02/[address] [facility] [address] [place] [address] 06/27/[address] [address] 07/03/2024 Gary Zeinab Diabetes mellitus du e to underlying condition with diabetic neuropathy, unspecified E08.40 ; Essential (primary) hypertension I10 ; Mixed hyperlipidemia E78.2 and Insomnia, unspecified G47.[address] [place] [address] 12/31/2024 [facility] Encounter for genera l adult medical examination without abnormal findings Z00.00 ; Diabetes mellitus due to underlying condition with diabetic nephropathy E08.21 ; Essential (primary) hypertension I10 ; Insomnia, unspecified G47.00 ; Venous insufficiency (chronic) (peripheral) I87.2 and Encounter for screening for malignant neoplasm of prostate Z12.[address] [place] [address] 02/01/[address] [place] [address] 03/01/[address] [place] [address] 03/04/2024 [facility] [address] [facility] [address] [facility] [place] [address] 03/05/2024 [facility] [address] [facility] [address] [place] [address] 05/08/2024 [facility] [address] [facility] [address] [facility] [place] [address] 05/10/2024 [facility] [address] [facility] [address] [facility] [place] [address] 05/14/2024 [facility] [address] [facility] [address] [facility] [place] [address] 06/11/2024 [facility] [address] [facility] [address] [facility] [place] [address] 06/13/2024 [facility] [address] [facility] [address] [facility] [place] [address] 06/13/2024 [facility] [address] [facility] [address] [facility] [place] [address] 06/13/2024 [facility] [address] [facility] [address] [facility] [place] [address] 06/13/2024 [facility] [address] [facility] [address] [facility] [place] [address] 07/17/2024 [facility] [address] [facility] [address] [facility] [place] [address] 07/18/2024 [facility] [address] [facility] [address] [facility] [place] [address] 07/23/2024 [facility] [address] [facility] [address] [facility] [place] [address] 07/31/2024 [facility] Essential (primary) hypertension I10 [facility] [address] [facility] [address] [facility] [place] [address] 07/31/[address] [place] [address] 11/13/[address] [place] [address] 11/19/[address] [place] [address] 12/11/[address] [place] [address] 12/11/[address] [place] [address] 01/01/[address] [place] [address] 01/14/2025 [facility] Assessments Encounter Date Diagnosis (ICD Code) Assessment Notes Treatment Notes Treatment Clinical Notes Section Notes 07/03/2024 Diabetes mellitus due to underlying condition with diabetic neuropathy, unspecified (ICD-10 - E08.40) Mr. Maldonado is a 69-year-old gentleman with insulin-dependent DM type II, hypertension, hyperlipidemia, insomnia, bipolar disorder, status post CVA here for follow-up. Plan is as follows: DM T2 with diabetic neuropathy and nephropathy. - A1c 8.0 He is on right medications. Increase insulin by 2 units for goal blood sugars of less than 130 in the morning and postprandial less than 180. He has appointment with elementary teacher in July 29. He has seen his decorator street and building in the past 1 year. Foot care discussed. Check A1c. Hypertension. CKD -Blood pressure well controlled on current regimen. Follows with Dr. Millard- Nephrology Hyperlipidemia. -Last lipid panel within normal limits. Continue on current regimen. check lipid panel Class 1 obesity. -Advised dietary restrictions and regimental exercise. Goal is to lose 5-6 lbs a month. Insomnia: - Stable. Continue on the same regimen. General health concerns discussed with patient. I have rendered the services for this patient under direct supervision of Dr. Ramirez, who did not see the patient but was available upon request 07/31/2024 Essential (primary) hypertension (ICD-10 - I10) 12/31/2024 Diabetes mellitus due to underlying condition with diabetic nephropathy (ICD-10 - E08.21) Mr. Maldonado is a 69-year-old gentleman with insulin-dependent DM type II, hypertension, hyperlipidemia, insomnia, bipolar disorder, status post CVA here for AWV. He is in his usual state of health. Last eye exam positive for diabetic retinopathy. 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 He is currently on long-acting insulin 35 units twice a day, sliding scale, metformin ER 500 mg 1 tablet twice a day,Farxiga 10 mg daily. 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 He is on statins and MARIO. EKG is normal sinus rhythm at 59 bpm with no acute ST or T wave changes, no bundle-branch blocks, normal intervals Hypertension/hyper lipidemia and status post CVA. Blood pressure well controlled on current regimen and check lipid panel. He is on aspirin and Plavix. Venous insufficiency. He is given Lasix 20 mg 1 tablet daily and avoid salty foods if needed we will give him compression stockings. Insomnia. He is on trazodone and it is helping. Is up to date on any specific screening. He is full code and his is his healthcare proxy. 12/31/2024 Encounter for general adult medical examination without abnormal findings (ICD-10 - Z00.00) Mr. Maldonado is a 69-year-old gentleman with insulin-dependent DM type II, hypertension, hyperlipidemia, insomnia, bipolar disorder, status post CVA here for AWV. He is in his usual state of health. Last eye exam positive for diabetic retinopathy. 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 He is currently on long-acting insulin 35 units twice a day, sliding scale, metformin ER 500 mg 1 tablet twice a day,Farxiga 10 mg daily. 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 He is on statins and MARIO. EKG is normal sinus rhythm at 59 bpm with no acute ST or T wave changes, no bundle-branch blocks, normal intervals Hypertension/hyper lipidemia and status post CVA. Blood pressure well controlled on current regimen and check lipid panel. He is on aspirin and Plavix. Venous insufficiency. He is given Lasix 20 mg 1 tablet daily and avoid salty foods if needed we will give him compression stockings. Insomnia. He is on trazodone and it is helping. Is up to date on any specific screening. He is full code and his is his healthcare proxy. 12/31/2024 Essential (primary) hypertension (ICD-10 - I10) Mr. Maldonado is a 69-year-old gentleman with insulin-dependent DM type II, hypertension, hyperlipidemia, insomnia, bipolar disorder, status post CVA here for AWV. He is in his usual state of health. Last eye exam positive for diabetic retinopathy. 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 He is currently on long-acting insulin 35 units twice a day, sliding scale, metformin ER 500 mg 1 tablet twice a day,Farxiga 10 mg daily. 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 He is on statins and MARIO. EKG is normal sinus rhythm at 59 bpm with no acute ST or T wave changes, no bundle-branch blocks, normal intervals Hypertension/hyper lipidemia and status post CVA. Blood pressure well controlled on current regimen and check lipid panel. He is on aspirin and Plavix. Venous insufficiency. He is given Lasix 20 mg 1 tablet daily and avoid salty foods if needed we will give him compression stockings. Insomnia. He is on trazodone and it is helping. Is up to date on any specific screening. He is full code and his is his healthcare proxy. 07/03/2024 Essential (primary) hypertension (ICD-10 - I10) Mr. Maldonado is a 69-year-old gentleman with insulin-dependent DM type II, hypertension, hyperlipidemia, insomnia, bipolar disorder, status post CVA here for follow-up. Plan is as follows: DM T2 with diabetic neuropathy and nephropathy. - A1c 8.0 He is on right medications. Increase insulin by 2 units for goal blood sugars of less than 130 in the morning and postprandial less than 180. He has appointment with elementary teacher in July 29. He has seen his decorator street and building in the past 1 year. Foot care discussed. Check A1c. Hypertension. CKD -Blood pressure well controlled on current regimen. Follows with Dr. Millard- Nephrology Hyperlipidemia. -Last lipid panel within normal limits. Continue on current regimen. check lipid panel Class 1 obesity. -Advised dietary restrictions and regimental exercise. Goal is to lose 5-6 lbs a month. Insomnia: - Stable. Continue on the same regimen. General health concerns discussed with patient. I have rendered the services for this patient under direct supervision of Dr. Ramirez, who did not see the patient but was available upon request 07/03/2024 Mixed hyperlipidemia (ICD-10 - E78.2) Mr. Maldonado is a 69-year-old gentleman with insulin-dependent DM type II, hypertension, hyperlipidemia, insomnia, bipolar disorder, status post CVA here for follow-up. Plan is as follows: DM T2 with diabetic neuropathy and nephropathy. - A1c 8.0 He is on right medications. Increase insulin by 2 units for goal blood sugars of less than 130 in the morning and postprandial less than 180. He has appointment with elementary teacher in July 29. He has seen his decorator street and building in the past 1 year. Foot care discussed. Check A1c. Hypertension. CKD -Blood pressure well controlled on current regimen. Follows with Dr. Millard- Nephrology Hyperlipidemia. -Last lipid panel within normal limits. Continue on current regimen. check lipid panel Class 1 obesity. -Advised dietary restrictions and regimental exercise. Goal is to lose 5-6 lbs a month. Insomnia: - Stable. Continue on the same regimen. General health concerns discussed with patient. I have rendered the services for this patient under direct supervision of Dr. Ramirez, who did not see the patient but was available upon request 12/31/2024 Insomnia, unspecified (ICD-10 - G47.00) Mr. Maldonado is a 69-year-old gentleman with insulin-dependent DM type II, hypertension, hyperlipidemia, insomnia, bipolar disorder, status post CVA here for AWV. He is in his usual state of health. Last eye exam positive for diabetic retinopathy. 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 He is currently on long-acting insulin 35 units twice a day, sliding scale, metformin ER 500 mg 1 tablet twice a day,Farxiga 10 mg daily. 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 He is on statins and MARIO. EKG is normal sinus rhythm at 59 bpm with no acute ST or T wave changes, no bundle-branch blocks, normal intervals Hypertension/hyper lipidemia and status post CVA. Blood pressure well controlled on current regimen and check lipid panel. He is on aspirin and Plavix. Venous insufficiency. He is given Lasix 20 mg 1 tablet daily and avoid salty foods if needed we will give him compression stockings. Insomnia. He is on trazodone and it is helping. Is up to date on any specific screening. He is full code and his is his healthcare proxy. 12/31/2024 Venous insufficiency (chronic) (peripheral) (ICD-10 - I87.2) Mr. Maldonado is a 69-year-old gentleman with insulin-dependent DM type II, hypertension, hyperlipidemia, insomnia, bipolar disorder, status post CVA here for AWV. He is in his usual state of health. Last eye exam positive for diabetic retinopathy. 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 He is currently on long-acting insulin 35 units twice a day, sliding scale, metformin ER 500 mg 1 tablet twice a day,Farxiga 10 mg daily. 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 He is on statins and MARIO. EKG is normal sinus rhythm at 59 bpm with no acute ST or T wave changes, no bundle-branch blocks, normal intervals Hypertension/hyper lipidemia and status post CVA. Blood pressure well controlled on current regimen and check lipid panel. He is on aspirin and Plavix. Venous insufficiency. He is given Lasix 20 mg 1 tablet daily and avoid salty foods if needed we will give him compression stockings. Insomnia. He is on trazodone and it is helping. Is up to date on any specific screening. He is full code and his is his healthcare proxy. 07/03/2024 Insomnia, unspecified (ICD-10 - G47.00) Mr. Maldonado is a 69-year-old gentleman with insulin-dependent DM type II, hypertension, hyperlipidemia, insomnia, bipolar disorder, status post CVA here for follow-up. Plan is as follows: DM T2 with diabetic neuropathy and nephropathy. - A1c 8.0 He is on right medications. Increase insulin by 2 units for goal blood sugars of less than 130 in the morning and postprandial less than 180. He has appointment with elementary teacher in July 29. He has seen his decorator street and building in the past 1 year. Foot care discussed. Check A1c. Hypertension. CKD -Blood pressure well controlled on current regimen. Follows with Dr. Millard- Nephrology Hyperlipidemia. -Last lipid panel within normal limits. Continue on current regimen. check lipid panel Class 1 obesity. -Advised dietary restrictions and regimental exercise. Goal is to lose 5-6 lbs a month. Insomnia: - Stable. Continue on the same regimen. General health concerns discussed with patient. I have rendered the services for this patient under direct supervision of Dr. Ramirez, who did not see the patient but was available upon request 12/31/2024 Encounter for screening for malignant neoplasm of prostate (ICD-10 - Z12.5) Mr. Maldonado is a 69-year-old gentleman with insulin-dependent DM type II, hypertension, hyperlipidemia, insomnia, bipolar disorder, status post CVA here for AWV. He is in his usual state of health. Last eye exam positive for diabetic retinopathy. 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 He is currently on long-acting insulin 35 units twice a day, sliding scale, metformin ER 500 mg 1 tablet twice a day,Farxiga 10 mg daily. 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 He is on statins and MARIO. EKG is normal sinus rhythm at 59 bpm with no acute ST or T wave changes, no bundle-branch blocks, normal intervals Hypertension/hyper lipidemia and status post CVA. Blood pressure well controlled on current regimen and check lipid panel. He is on aspirin and Plavix. Venous insufficiency. He is given Lasix 20 mg 1 tablet daily and avoid salty foods if needed we will give him compression stockings. Insomnia. He is on trazodone and it is helping. Is up to date on any specific screening. He is full code and his is his healthcare proxy. Plan Of Treatment Pending Test Test Name Order Date X ray : Elbow, right 02/20/2019 Carotid Ultrasound 12/25/2023 Electrocardiogram (EKG) 08/30/2018 Electrocardiogram (EKG) 09/14/2018 Hemoglobin [id number] 07/03/2024 Lipid Panel-[id number] 07/03/2024 Comp. Metabolic Panel [id number] 2024 Future Test Test Name Order Date Hemoglobin [id number] 12/31/2024 Albumin/Creatinine Ratio,Urine-[id number] Lipid Panel-[id number] 12/31/2024 Comp. Metabolic Panel (14)-2024 PSA (Serial Monitor)-[id number] 12/31/2024 Next Appt Details Provider Name:JHONNY RAMIREZ , 07/01/2025 02:45:00 PM, [address] [place] [address] [address], [place], [address], Insurance Providers Payer Name Payer Address Payer Phone Subscriber Number Group Number Insured Name Patient Relationship to Insured Coverage Start Date Coverage End Date Medicare [address] [place] [id number] Jose Miguel Enamorado Self - patient is the insured 8 [place] [employer] [address] [place] [address] [id number] Jose Miguel Enamorado Self - patient is the insured Medical (General) History Medical History History ICD Code hypertension, benign hyperlipidemia Insulin-dependent DM type II [place] Mega Cop[place] [facility] kidney disease and see Dr Gillespie Polysubstance use and currently on Subox one and see Dr Frye Bipolar disorder Chronic insomnia Follows podiatry Dr. Vincent and ophthalmol ogist Dr. 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
[2025-01-30 18:05] LABS: Anion Gap 13 (12-20); Blood Urea Nitrogen 21 mg/dL (9-16); Carbon Dioxide 31 mmol/L (22-29); Chloride 99 mmol/L (96-108); Estimated Glomerular Filt Rate > 60; Potassium 4.7 mmol/L (3.3-5.1); Sodium 138 mmol/L (135-145)
[2025-01-30 18:24] LABS: Total Protein Urine Random < 7 mg/dL (<12)
== END 2025-01-30 13:26 | disposition home or self-care (01) ==
LOC: HO.HKASLDS 13:25
PROVIDERS: Visit Provider Internal Medicine Nephrology
DX: I10 Essential (primary) hypertension (principal)
CPT/HCPCS: 36415; 80051; 82565; 82570; 84156; 84520

== ENCOUNTER 2025-02-25 13:34 | Outpatient (AMB) | payer MEDICARE, MEDICAID, SELFPAY ==
--- NOTE | 2025-02-25 13:36 | HO.NEPHOV_ITS ---
Vital Signs 02/25/25 13:48 Height 5 ft 9 in Weight 221 lb 8 oz BMI 32.7 BP 130/60 Blood Pressure Location Rt brachial Position Sitting Pulse 64 Pulse Source Pulse Oximeter Pulse Oximetry (%) 96 Oxygen Delivery Method Room Air Intake Visit Reasons: 6mon follow-up w/labs-Conf Product Marketer Required: No Accompanied by: Self / Same As Patient Allergies No Known Allergies Allergy (Verified 02/25/25 13:48) HPI Comments Details: Mr. Maldonado was seen in follow-up of his hypertension. He has been abstaining from using any drugs. His blood sugar control is better. His blood pressure has been at goal. He denies chest pain, shortness of breath, paroxysmal nocturnal dyspnea, orthopnea, pedal edema, urinary symptoms or orthostasis. He is compliant with his medications. There were no new active complaints at the time of this office visit. [facility] Medical History (Updated 07/13/23 @ 14:22 by Freeman Gillespie MD) Hypertension Family History Mother Glaucoma Father Heart disease Heart attack Social History Alcohol intake: former Patient Tobacco Use Status: Former Tobacco user Review of Systems Const All systems reviewed & are unremarkable except as noted in HPI and below Physical Exam Const General: comfortable and no acute distress Orientation/consciousness: patient oriented x3 HEENT Head: Yes normocephalic Mouth: Normal oral and palatal mucosa present Eyes EOM: EOMs intact bilaterally Neck Neck: Yes supple Resp Auscultation: clear to auscultation bilaterally Cardio Jugular venous distension: no JVD Rate: regular rate GI Palpation (GI): Soft to palpation Auscultation: normal bowel sounds General: Yes no CVA tenderness Back/Spine/Pelvis Back: no CVA tenderness Skin General skin exam: no rashes or lesions noted Neuro General: patient oriented x3 and moves all extremities Extrem General: Yes no pedal edema Results Reviewed Nephrology Results: Sodium, (135-145) 138 mmol/L 01/30/25 Potassium, (3.3-5.1) 4.7 mmol/L 01/30/25 Chloride, (96-108) 99 mmol/L 01/30/25 Carbon Dioxide, (22-29) 31 mmol/L H 01/30/25 BUN, (9-16) 21 mg/dL H 01/30/25 Creatinine, (0.5-1.4) 1.03 mg/dL 01/30/25 Urine Creatinine 52.88 mg/dL 01/30/25 Protein/Creatinin Ratio TNP 01/30/25 Assessment & Plan Assessment & Plan (1) Hypertension: Code(s): I10 - Essential (primary) hypertension Category: Medical Qualifiers: Hypertension type: primary hypertension Qualified Code(s): I10 - Essential (primary) hypertension Plan Mr Maldonado has longstanding hypertension. He has not been using any drugs. He does not take any nonsteroidal anti-inflammatory meds regularly. He tries to maintain a low-sodium diet. He is on MARIO inhibitor. His blood pressure is at goal. He is tolerating all his current medications without any side effects. He does not have any significant proteinuria. His diabetes is fairly controlled. I did not make any medication changes today. Follow-up blood work ordered. Answered all questions. Orders: Orders Creatinine 6 Months I10 - Essential (primary) hypertension Protein Creatinine Ratio, Ur 6 Months I10 - Essential (primary) hypertension Electrolytes 6 Months I10 - Essential (primary) hypertension Blood Urea Nitrogen 6 Months I10 - Essential (primary) hypertension Coding Level of Care Code Est Pt Level 4 (80921) Diagnoses Primary hypertension I10 Hypertension type: primary hypertension
[2025-02-25 13:48] VITALS: BP 130/60; PULSE 64; O2SAT 96; BMI 32.7
--- OUTSIDE RECORDS SUMMARY | 2025-02-25 14:52 | XMS_ITS | Clinical Summary ---
Author Organization [facility] Address [address] [facility] [address] [place] [address] Phone Care Team Providers Care Wool Grower Name Role Phone Karyn Rae MD Primary Care Provider [phone] Allergies No known active allergies Medications atorvastatin [...] 9.6 8.7 - 10.7 mg/dL eGFR Non-Afr Australian 100 eGFR 116 Hemoglobin A1C 8.5(A) 4.0 - 6.0 Triglycerides 115 40 - 160 Cholesterol 103 0 - 200 HDL 37 35 - 70 MG/DL LDL Calculated 43 0 - 160 mg/dL 08/27/2020 us Historical Provider LAB BLOOD ORDERABLES Christina l Result from Last 3 Months or Most Recently Relevant to Health Maintenance Insurance Medicare Medicaid [place] Care Teams Wool Grower Relationship Specialty Start Date End Date Karyn Rae MD [address] [place] [id number] PCP - General 07/06/20
--- OUTSIDE RECORDS SUMMARY | 2025-02-25 14:52 | XMS_ITS | Clinical Summary ---
Author Organization [facility] Address [address] [place] [address] Care Team Providers Care Dispatch Machine Runner Name Role Phone Karyn Rae MD Primary Care Provider [phone] Social History Tobacco Use Types Packs/Day Years [...] age to complete this topic Care Teams Dispatch Machine Runner Relationship Specialty Start Date End Date Karyn Rae MD [address] [place] [address] PCP - General Internal Medicine 01/11/19
--- OUTSIDE RECORDS SUMMARY | 2025-02-25 14:52 | XMS_ITS | Encounter Summary ---
Author Organization [facility] Address [address] [facility] [address] [place] [address] Phone Care Team Providers Care Sustainability Consultant Name Role Phone Karyn Rae MD Primary Care Provider [phone] Encounter Details Date Type Department Care Team (Late st Contact Info) Description 09/22/2021 Telephone [facility] [address] [facility] [address] [place] [address] Freeman Gillespie MD Social History [...] concerned about. Please advise Thank you CB# [phone] documented in this encounter Plan of Treatment Not on file documented as of this encounter Visit Diagnoses Not on filedocumented in this encounter Care Teams Sustainability Consultant Relationship Specialty Start Date End Date Karyn Rae MD [address] [place] [phone] PCP - General 07/06/20 documented as of this encounter
--- OUTSIDE RECORDS SUMMARY | 2025-02-25 14:52 | XMS_ITS | Encounter Summary ---
Author Organization [facility] Address [address] [place] [address] Phone Care Team Providers Care Policy Service Coordinator Name Role Phone Karyn Rae MD Primary Care Provider Reason for Visit * Reason Comments Med Refill Encounter Details Date Type Department Care Team (Late st Contact Info) Description 08/05/2020 Refill [facility] [address] [place] [address] Freeman Gillespie MD Social History [...] on filedocumented in this encounter Care Teams Policy Service Coordinator Relationship Specialty Start Date End Date Karyn Rae MD [address] [place] [address] PCP - General 07/06/20 documented as of this encounter
== END 2025-02-25 14:13 | disposition home or self-care (01) ==
LOC: HO.HKAS 13:34
PROVIDERS: PCP Hospitalist; Visit Provider Internal Medicine Nephrology
DX: I10 Essential (primary) hypertension (principal)
CPT/HCPCS: 99214

== ENCOUNTER → 2025-02-25 13:34 | Outpatient (BNVA) | payer MEDICARE, MEDICAID, SELFPAY | PROVIDERS: PCP Hospitalist; Visit Provider Internal Medicine Nephrology | DX: I10 Essential (primary) hypertension (principal) | CPT/HCPCS: 99212 ==